=== PATIENT | female | born 1995 | race Asian ===

== ENCOUNTER 2020-07-24 19:37 | Emergency (ER) | payer OTHER ==
[~2020-07-24] VITALS: Ht 154.9 cm; Wt 57.2 kg
[2020-07-24 19:42] VITALS: BP 120/79
--- NOTE | 2020-07-24 19:49 | NUR ---
PT AMBULATED TO BED 09 WTIH STEADY GAIT.
--- NOTE | 2020-07-24 19:50 | NUR ---
25 YO F BIB SELF FOR C/C OF 7/10 MID BACK PAIN X3 DAYS AND "ABNORMAL FEELING IN HER BELLY." PT STATES SHE HAD A UTI LAST MONTH AND IS WORRIED SHE IS HAVING ANOTHER ONE DESPITE HAVING NO URINARY SYMPTOMS. . PT HAD A MISCARRAIGE LAST YEAR. BED LOCKED AND IN LOWEST POSITION. SIDE RAILS X1. MED HX: MISCARRAIGE 2019, PARTIAL COLONOSTOMY, ASTHMA, GALLBLADDER REMOVAL ALLERGIES TO PENICILLIN
[2020-07-24] MEDS ORDERED: DOPPLER MC ONE (19:53)
--- NOTE | 2020-07-24 20:00 | NUR ---
HEART TONES ASSESSED -206 BPM
[2020-07-24 20:31] LABS: APPEARANCE,URINE CLOUDY (CLEAR); BILIRUBIN,URINE NEGATIVE (NEGATIVE); BLOOD, URINE NEGATIVE (NEGATIVE); COLOR,URINE YELLOW (YELLOW); LEUKOCYTE ESTERASE ,URINE TRACE (NEGATIVE); NITRITE, URINE NEGATIVE (NEGATIVE); UGLUCOSE NEGATIVE (NEGATIVE)
[2020-07-24 20:35] LABS: RBC,URINE 0-5 /HPF (0-5)
[2020-07-24 21:12] VITALS: BP 120/79
== END 2020-07-24 21:12 | disposition home or self-care (01) ==
LOC: MED 19:37
DX: O23.42 Unspecified infection of urinary tract in pregnancy, second trimester (principal); M54.9 Dorsalgia, unspecified; J45.909 Unspecified asthma, uncomplicated; Z88.0 Allergy status to penicillin; Z90.49 Acquired absence of other specified parts of digestive tract; Z98.890 Other specified postprocedural states; Z3A.16 16 weeks gestation of pregnancy
CPT/HCPCS: 81001; 81025; 87086; 99283

== ENCOUNTER 2020-08-09 11:10 | Emergency (ER) | payer OTHER ==
[~2020-08-09] VITALS: Ht 154.9 cm; Wt 57.6 kg
[2020-08-09 11:16] VITALS: BP 118/81
[2020-08-09] MEDS ORDERED: LIDOCAINE MPF 1% 5 ML ONE (11:17)
--- NOTE | 2020-08-09 11:41 | NUR ---
ULTRASOUND AT BEDSIDE
--- NOTE | 2020-08-09 11:45 | NUR ---
25 Y/O FEMALE PRESENTS TO ED C/C VAGINAL BLEEDING X1 DAY, PT IS 18 WEEKS , STATES SHE IS HAVING SOME ABDOMINAL DISCOMFORT. BLEEDING IS MILD, PATIENT IS NOT SATURATING PADS/UNDERWEAR. DENIES PAIN,N/V/D. NO VISUAL SIGNS OF RESPIRATORY DISTRESSBED, HR 110 TACHY. PT DENIES CHEST PAIN. ERMD NOTIFIED OF PT CONDITION. BED LOCKED IN LOWEST POSITION. PT POSITIONED FOR COMFORT. PMH: ASTHMA ALLERGIES: PENICILLINS
[2020-08-09 11:51] LABS: BASOPHILS % (AUTO) 0.5 % (0.0-2.0); EOSINOPHILS # (AUTO) 0.3 K/uL (0-0.4); EOSINOPHILS % (AUTO) 3.6 % (0.0-4.0); HEMATOCRIT 37.5 % (36-48); HEMOGLOBIN 12.3 g/dL (12.0-16.0); LYMPHOCYTES % (AUTO) 10.6 % (20.5-51.1); MEAN CORPUSCULAR HEMOGLOBIN 28 pg (27-31); MEAN CORPUSCULAR HGB CONC 33 g/dL (33-37); MEAN CORPUSCULAR VOLUME 84.5 fL (80-94); MONOCYTES # (AUTO) 0.6 K/uL (0.8-1.0); NEUTROPHILS # (AUTO) 7.3 K/uL (1.8-7.7); NEUTROPHILS % (AUTO) 79.3 % (42.2-75.2); PLATELET COUNT (AUTO) 167 K/uL (140-450); RED BLOOD CELL COUNT(AUTO) 4.44 MIL/uL (4.20-5.40); RED CELL DISTRIBUTION WIDTH 13.5 % (11.6-13.7); WHITE BLOOD COUNT (AUTO) 9.2 K/uL (4.8-10.8)
[2020-08-09 12:54] LABS: APPEARANCE,URINE CLEAR (CLEAR); BILIRUBIN,URINE NEGATIVE (NEGATIVE); BLOOD, URINE 1+ (NEGATIVE); COLOR,URINE YELLOW (YELLOW); LEUKOCYTE ESTERASE ,URINE 1+ (NEGATIVE); NITRITE, URINE NEGATIVE (NEGATIVE); UGLUCOSE TRACE (NEGATIVE)
[2020-08-09 13:00] LABS: RBC,URINE 0-5 /HPF (0-5); WBC,URINE 0-5 /HPF (0-5)
--- NOTE | 2020-08-09 13:20 | NUR ---
Patient discharged with v/s stable. Written and verbal after care instructions given and explained. Patient verbalized understanding. Ambulatory with steady gait. All questions addressed prior to discharge. Advised to follow up with PMD.
[2020-08-09 13:21] VITALS: BP 115/79
== END 2020-08-09 13:20 | disposition home or self-care (01) ==
LOC: MED 11:10
DX: O46.92 Antepartum hemorrhage, unspecified, second trimester (principal); J45.909 Unspecified asthma, uncomplicated; Z88.0 Allergy status to penicillin; Z3A.18 18 weeks gestation of pregnancy; Z98.890 Other specified postprocedural states
CPT/HCPCS: 36415; 76817; 81001; 84702; 85025; 86900; 86901; 87086; 99284; J2001; Q0092

== ENCOUNTER 2021-01-16 17:48 | Emergency (ER) | payer OTHER ==
[~2021-01-16] VITALS: Ht 154.9 cm; Wt 56.2 kg
[2021-01-16 18:02] VITALS: BP 125/69
--- NOTE | 2021-01-16 18:05 | NUR ---
triaged and sent to ER lobby.
--- NOTE | 2021-01-16 18:55 | NUR ---
PT AMBULATED TO BED #10. PT PLACED IN A GOWN
--- NOTE | 2021-01-16 19:03 | NUR ---
ERMD AT BEDSIDE.
[2021-01-16] MEDS ORDERED: KETOROLAC 30 MG/ML VIAL IM ONE (19:05)
--- NOTE | 2021-01-16 19:15 | NUR ---
PATIENT BIB SELF FOR C/O 01/16 RIGHT BREAST PAIN X 4 DAYS. A&O X4. PATIENT REPORTS "I HAVE A 3 WEEK OLD BABY AND IM " SHE ALSO STATES "IT STARTED ON THE LEFT, THEN I GOT ANTIBIOTICS AND IT MOVED TO THE RIGHT." PATIENT REPORTS TAKING TYLENOL AT 1530 WITHOUT RELIEF. SKIN IS WARM, DRY AND INTACT. NO REDNESS NOTED. PATIENT DENIES SOB, CHEST PAIN, FEVER/CHILLS AT THIS TIME. MEDICAL HISTORY: APPENDECTOMY, ASTHMA, , REMOVAL OF GALLBLADDER ALLERGIES: MONTSE
[2021-01-16] MEDS ORDERED: NAPR-54 PO (20:11)
[2021-01-16 20:19] VITALS: BP 125/69
== END 2021-01-16 20:19 | disposition home or self-care (01) ==
LOC: MED 17:48
DX: O91.23 Nonpurulent mastitis associated with lactation (principal); J45.909 Unspecified asthma, uncomplicated; Z88.0 Allergy status to penicillin
CPT/HCPCS: 96372; 99283; J1885

== ENCOUNTER 2022-08-28 12:20 | Emergency (ER) | payer OTHER ==
[~2022-08-28] VITALS: Ht 154.9 cm; Wt 56.7 kg
[~2022-08-28 12:20] MED LIST: NAPR-54 PO
[2022-08-28 12:26] VITALS: BP 123/73
--- NOTE | 2022-08-28 13:11 | NUR ---
Patient ambulated to ED bed 7.
[2022-08-28 13:25] LABS: BASOPHILS # (AUTO) 0.1 K/uL (0.00-0.22); BASOPHILS % (AUTO) 0.7 % (0.0-2.0); EOSINOPHILS # (AUTO) 0.3 K/uL (0-0.4); EOSINOPHILS % (AUTO) 3.9 % (0.0-4.0); HEMATOCRIT 39.2 % (36-48); HEMOGLOBIN 12.9 g/dL (12.0-16.0); LYMPHOCYTES # (AUTO) 1.1 K/uL (2.5-16.5); LYMPHOCYTES % (AUTO) 14.5 % (20.5-51.1); MEAN CORPUSCULAR HEMOGLOBIN 28 pg (27-31); MEAN CORPUSCULAR HGB CONC 33 g/dL (33-37); MEAN CORPUSCULAR VOLUME 84.2 fL (80-94); MONOCYTES # (AUTO) 0.7 K/uL (0.8-1.0); MONOCYTES % (AUTO) 8.5 % (1.7-9.3); NEUTROPHILS # (AUTO) 5.6 K/uL (1.8-7.7); NEUTROPHILS % (AUTO) 72.4 % (42.2-75.2); PLATELET COUNT (AUTO) 197 K/uL (140-450); RED BLOOD CELL COUNT(AUTO) 4.66 MIL/uL (4.20-5.40); RED CELL DISTRIBUTION WIDTH 13.8 % (11.6-13.7); WHITE BLOOD COUNT (AUTO) 7.8 K/uL (4.8-10.8)
--- NOTE | 2022-08-28 13:28 | NUR ---
US AT BEDSIDE
--- NOTE | 2022-08-28 13:55 | NUR ---
27YO FEMALE PT C/O MILD CRAMPING AND PRESSURE LOWER ABDOMINAL PAIN X3DAYS. PT CURRENTLY 1 WEEKS -1. LMP 05/31/22 / LILIA 03/13/23. DENIES TAKING MEDICATION FOR PAIN, VAGINAL BLEEDING , N/V/D, CP, FEVER, CHILLS OR SOB. PT AAOX4, REPIRATIONS EVEN AND UNLABORED. HOB POSITIONED PER COMFORT. HX: GESTATIONAL DIABETES, ASTHMA NKA
[2022-08-28 14:05] LABS: APPEARANCE,URINE CLOUDY (CLEAR); BILIRUBIN,URINE NEGATIVE (NEGATIVE); BLOOD, URINE NEGATIVE (NEGATIVE); COLOR,URINE ORANGE (YELLOW); LEUKOCYTE ESTERASE ,URINE 1+ (NEGATIVE); NITRITE, URINE NEGATIVE (NEGATIVE); UGLUCOSE 1+ (NEGATIVE)
[2022-08-28 15:34] LABS: ANION GAP 11.9 (8-16); CARBON DIOXIDE 29.9 mmol/L (21-32); CREATININE 0.4 mg/dL (0.6-1.3); POTASSIUM 3.8 mmol/L (3.5-5.1)
[2022-08-28] MEDS ORDERED: CEPH-588 PO (15:52)
[2022-08-28] MEDS ORDERED: NITR100C7 PO (15:56)
[2022-08-28 16:05] VITALS: BP 125/73
--- NOTE | 2022-08-28 16:05 | NUR ---
Patient discharged with v/s stable. Written and verbal after care instructions FOR THREATENED MISCARRIAGE AND UTI given and explained. Patient alert, oriented and verbalized understanding of instructions. Ambulatory with steady gait. All questions addressed prior to discharge. ID band removed. Patient advised to follow up with PMD. Rx of MACROBID given. Opportunity to ask questions provided and answered.
== END 2022-08-28 16:05 | disposition home or self-care (01) ==
LOC: MED 12:20
DX: O20.0 Threatened abortion (principal); O23.41 Unspecified infection of urinary tract in pregnancy, first trimester; O99.511 Diseases of the respiratory system complicating pregnancy, first trimester; J45.909 Unspecified asthma, uncomplicated; Z3A.12 12 weeks gestation of pregnancy; Z98.890 Other specified postprocedural states; Z79.1 Long term (current) use of non-steroidal anti-inflammatories (NSAID); Z79.2 Long term (current) use of antibiotics; Z88.0 Allergy status to penicillin
CPT/HCPCS: 36415; 76801; 80048; 81003; 81025; 84702; 85025; 86886; 86900; 86901; 87086; 99284; Q0092

== ENCOUNTER 2023-05-04 13:36 | Emergency (ER) | payer MEDICAID, OTHER ==
[~2023-05-04] VITALS: Ht 154.9 cm; Wt 54.0 kg
[~2023-05-04 13:36] MED LIST changes: +NITR100C7 PO
[2023-05-04 13:51] VITALS: BP 120/76; PULSE 104; RESP 18; TEMP 97.9; O2SAT 98
--- NOTE | 2023-05-04 16:11 | NUR ---
28YO FEMALE C/O R BREAST PAIN X1DAY. REPORTS SUDDEN ONSET W/ PAIN AT MOST ON TOUCH. REDNESS NOTED UNDER BREAST. PT STATES BEING 8 WEEKS AND IS . +FEVER/CHILLS. DENIES N/V/D, CHEST PAIN OR SOB. PT AAOX5, HOB POSITIONED PER COMFORT. CALL LIGHT WITHIN REACH. HX: MASTITIS ALLERGIES: PENICILLINS
--- NOTE | 2023-05-04 16:11 | NUR ---
Female Flask Cleaner accompanied female patient for BREAST Exam.
[2023-05-04] MEDS ORDERED: NAPR-54 PO (16:37)
[2023-05-04] MEDS ORDERED: SULF-59 PO (16:37)
[2023-05-04] MEDS ORDERED: IBUPROFEN 600 MG TAB PO ONE (16:40)
[2023-05-04 16:53] VITALS: BP 120/76; PULSE 82; RESP 18; TEMP 97.9; O2SAT 99
--- NOTE | 2023-05-04 16:53 | NUR ---
Patient discharged with v/s stable. Written and verbal after care instructions FOR MASTITIS given and explained. Patient alert, oriented and verbalized understanding of instructions. Ambulatory with steady gait. All questions addressed prior to discharge. ID band removed. Patient advised to follow up with PMD. Rx of BACTRIM AND NAPROXEN given. Opportunity to ask questions provided and answered.
--- NOTE | 2023-05-04 19:16 | NUR ---
The patient's care was reviewed and supervised by Alice Marte RN, RN.
== END 2023-05-04 16:53 | disposition home or self-care (01) ==
LOC: MED 13:36
DX: N61.0 Mastitis without abscess (principal); J45.909 Unspecified asthma, uncomplicated; Z79.1 Long term (current) use of non-steroidal anti-inflammatories (NSAID); Z79.2 Long term (current) use of antibiotics; Z88.0 Allergy status to penicillin
CPT/HCPCS: 99283

== ENCOUNTER 2023-07-24 13:37 | Emergency (ER) | payer MEDICAID ==
[~2023-07-24] VITALS: Ht 154.9 cm; Wt 49.9 kg
[~2023-07-24 13:37] MED LIST changes: +SULF-59 PO
[2023-07-24 13:45] VITALS: BP 107/67; PULSE 99; RESP 18; TEMP 97.1; O2SAT 97
[2023-07-24] MEDS ORDERED: SULF-59 PO (16:49)
[2023-07-24] MEDS ORDERED: ACET-1194 PO (16:49)
[2023-07-24 16:58] VITALS: BP 107/67; PULSE 99; RESP 18; TEMP 97.1; O2SAT 99
[2023-07-24 17:27] LABS: FLU A ANTIGEN negative (NEGATIVE); FLU B ANTIGEN NEGATIVE (NEGATIVE)
== END 2023-07-24 16:58 | disposition home or self-care (01) ==
LOC: MED 13:37
DX: N61.0 Mastitis without abscess (principal); Z20.822 Contact with and (suspected) exposure to COVID-19; J45.909 Unspecified asthma, uncomplicated; Z79.899 Other long term (current) drug therapy; Z79.2 Long term (current) use of antibiotics; Z79.1 Long term (current) use of non-steroidal anti-inflammatories (NSAID); Z88.0 Allergy status to penicillin
CPT/HCPCS: 99284

== ENCOUNTER 2023-10-27 23:38 | Emergency (ER) | payer MEDICAID ==
[~2023-10-27] VITALS: Ht 154.9 cm; Wt 47.6 kg
[~2023-10-27 23:38] MED LIST changes: +ACET-1194 PO
[2023-10-27 23:42] VITALS: BP 104/68; PULSE 67; RESP 16; TEMP 98.1; O2SAT 100
[2023-10-28] MEDS ORDERED: IBUP-2216 PO (00:38)
[2023-10-28] MEDS ORDERED: CLIN150C1 PO (00:38)
== END 2023-10-28 00:51 | disposition home or self-care (01) ==
LOC: MED 23:38
DX: K04.7 Periapical abscess without sinus (principal); J45.909 Unspecified asthma, uncomplicated; Z79.899 Other long term (current) drug therapy
CPT/HCPCS: 99282

== ENCOUNTER 2024-01-20 01:47 | Emergency (ER) | payer MEDICAID ==
[~2024-01-20] VITALS: Ht 154.9 cm; Wt 47.6 kg
[~2024-01-20 01:47] MED LIST changes: +CLIN150C1 PO; +IBUP-2216 PO
[2024-01-20 01:54] VITALS: BP 115/79; PULSE 117; RESP 18; TEMP 99.8; O2SAT 100
[2024-01-20] MEDS: IBUPROFEN 600 MG TAB PO ONE (02:26)
[2024-01-20 03:05] LABS: FLU A ANTIGEN negative (NEGATIVE); FLU B ANTIGEN negative (NEGATIVE)
[2024-01-20] MEDS ORDERED: SULF-59 PO (03:33)
[2024-01-20] MEDS: SULFAMETH/TRIMETH DS 800/160MG 1 TAB PO ONE (03:57)
== END 2024-01-20 04:25 | disposition home or self-care (01) ==
LOC: MED 01:47
DX: N64.4 Mastodynia (principal); J45.909 Unspecified asthma, uncomplicated; Z20.822 Contact with and (suspected) exposure to COVID-19; Z79.1 Long term (current) use of non-steroidal anti-inflammatories (NSAID); Z79.899 Other long term (current) drug therapy; Z88.0 Allergy status to penicillin
CPT/HCPCS: 76641; 99284